=== PATIENT | male | born 1990 | race Caucasian/White ===

== ENCOUNTER 2018-08-24 12:05 | Emergency (ER) | payer SELFPAY ==
[2018-08-24] MEDS ORDERED: Ketorolac 60 MG/2 ML SDV IM ONE (12:21)
[2018-08-24] MEDS ORDERED: traMADol 50 MG Tab PO ONE (13:59)
--- NOTE | 2018-08-24 14:05 | EDM.PDOC ---
ED HPI GENERAL MEDICAL PROBLEM - General Chief Complaint: Lower Extremity Injury/Pain Stated Complaint: LEFT HIP PAIN Time Seen by Provider: 08/24/18 12:07 Source of Information: Reports: Patient History Limitations: Reports: No Limitations - History of Present Illness INITIAL COMMENTS - FREE TEXT/NARRATIVE: History of present illness: []Patient fell off his porch prior to arrival landing on his left hip. Patient had hip surgery in April in [place] and has had pain in that hip ever since. After the fall he states he can't bear weight and it feels unstable. He denies any numbness or tingling or any other injuries on the fall. Review of systems: As per history of present illness and below otherwise all systems reviewed and negative. Past medical history: As per history of present illness and as reviewed below otherwise noncontributory. Surgical history: As per history of present illness and as reviewed below otherwise noncontributory. Social history: No reported history of drug or alcohol abuse. Family history: As per history of present illness and as reviewed below otherwise noncontributory. Physical exam: General: Well developed, well nourished in NAD HEENT: Atraumatic, normocephalic, pupils reactive, negative for conjunctival pallor or scleral icterus, mucous membranes moist, throat clear, neck supple, nontender, trachea midline. Lungs: Clear to auscultation, breath sounds equal bilaterally, chest nontender. Heart: S1S2, regular, negative for clicks, rubs, or JVD. Abdomen: NABS, Soft, nondistended, nontender. Negative for masses or hepatosplenomegaly. Negative for costovertebral tenderness. Pelvis: Stable nontender. Genitourinary: Deferred. Rectal: Deferred. Extremities: Left hip with surgical wound laterally healing well, there is no shortening or rotation of his left extremity positive free movement on flexion extension and internal/external rotation, negative for cords or calf pain. Neurovascular unremarkable. Neuro: Awake, alert, oriented. Cranial nerves II through XII unremarkable. Cerebellum unremarkable. Motor and sensory unremarkable throughout. Exam nonfocal. Skin:warm and dry Diagnostics: X-ray left hip no acute fracture Therapeutics: Toradol, tramadol ED Course: Unremarkable Impression: Left hip contusion Prescriptions: Tramadol Plan: Follow-up with PMD, symptoms worsen or change. Definitive disposition and diagnosis as appropriate pending reevaluation and review of above. left hip Pain Score (Numeric/FACES): 6 - Related Data Allergies Allergy/AdvReac Type Severity Reaction Status Date / Time No Known Allergies Allergy Verified 08/24/18 12:12 Home Meds: Home Meds traMADol HCl [Tramadol HCl] 50 mg PO Q6H PRN #16 tablet 08/24/18 [Rx] Past Medical History HEENT History: Reports: None Cardiovascular History: Reports: None Respiratory History: Reports: None Gastrointestinal History: Reports: None Genitourinary History: Reports: None Musculoskeletal History: Reports: None Neurological History: Reports: None Psychiatric History: Reports: None Endocrine/Metabolic History: Reports: None Hematologic History: Reports: None Immunologic History: Reports: None Oncologic (Cancer) History: Reports: None Dermatologic History: Reports: None - Past Surgical History Head Surgeries/Procedures: Reports: None HEENT Surgical History: Reports: None Cardiovascular Surgical History: Reports: None Respiratory Surgical History: Reports: None GI Surgical History: Reports: None Male Surgical History: Reports: None Endocrine Surgical History: Reports: None Neurological Surgical History: Reports: None Musculoskeletal Surgical History: Reports: Other (See Below) Other Musculoskeletal Surgeries/Procedures:: shattered left hip with pins and scerws placed, bilateral ankle surgery Oncologic Surgical History: Reports: None Dermatological Surgical History: Reports: None Social & Family History - Family History Family Medical History: Noncontributory - Tobacco Use Smoking Status *Q: Current Every Day Smoker Years of Tobacco use: 6 Packs/Tins Daily: 1 - Caffeine Use Caffeine Use: Reports: Coffee, Energy Drinks, Soda, Tea - Recreational Drug Use Recreational Drug Use: No Review of Systems - Review of Systems Review Of Systems: ROS reveals no pertinent complaints other than HPI. ED EXAM, GENERAL - Physical Exam Exam: See Below (See history of present illness) Course - Vital Signs Last Recorded V/S: Last Vital Signs Temp 97.3 F 08/24/18 12:13 Pulse 79 08/24/18 14:07 Resp 18 08/24/18 14:07 BP 130/73 08/24/18 14:07 Pulse Ox 98 08/24/18 14:07 - Orders/Labs/Meds Meds: Medications Discontinued Medications Generic Name Dose Route Start Last Admin Trade Name Freq PRN Reason Stop Dose Admin Ketorolac Tromethamine 60 mg 08/24/18 12:21 08/24/18 12:42 Toradol IM 08/24/18 12:22 60 mg ONETIME ONE Administration Tramadol HCl 50 mg 08/24/18 13:59 08/24/18 14:07 Ultram PO 08/24/18 14:00 50 mg ONETIME ONE Administration Departure - Departure Time of Disposition: 14:23 Disposition: Home, Self-Care 01 Condition: Good Clinical Impression: Chronic left hip pain - Discharge Information *PRESCRIPTION DRUG MONITORING PROGRAM REVIEWED*: No Prescriptions: traMADol HCl [Tramadol HCl] 50 mg PO Q6H PRN #16 tablet PRN Reason: Pain Referrals: PCP,None [Primary Care Provider] - Forms: ED Department Discharge Additional Instructions: The following information is given to patients seen in the emergency department who are being discharged to home. This information is to outline your options for follow-up care. We provide all patients seen in our emergency department with a follow-up referral. The need for follow-up, as well as the timing and circumstances, are variable depending upon the specifics of your emergency department visit. If you don't have a primary care physician on staff, we will provide you with a referral. We always advise you to contact your personal physician following an emergency department visit to inform them of the circumstance of the visit and for follow-up with them and/or the need for any referrals to a consulting specialist. The emergency department will also refer you to a specialist when appropriate. This referral assures that you have the opportunity for follow-up care with a specialist. All of these measure are taken in an effort to provide you with optimal care, which includes your follow-up. Under all circumstances we always encourage you to contact your private physician who remains a resource for coordinating your care. When calling for follow-up care, please make the office aware that this follow-up is from your recent emergency room visit. If for any reason you are refused follow-up, please contact the [facility] Emergency Department at and asked to speak to the emergency department charge nurse. Take meds as directed, ice to hip, follow-up PMD. return to ER if symptoms worsen or change. [facility] [address] [place] [id number]
--- NOTE | 2018-08-24 14:17 | CR ---
EXAMINATION: Pelvis and left hip HISTORY: Fall COMPARISON: None TECHNIQUE: AP pelvis and 2 views of the left hip FINDINGS: There is screw and plate hardware fixating the left acetabulum. There is no definite fracture or acute osseous and metallic noted. Bone mineralization is preserved. Advanced joint space narrowing, subchondral cystic changes, and degenerative changes noted within the left hip, likely posttraumatic. The SI joints are symmetric. IMPRESSION: 1. No definite acute osseous and metallic. 2. Advanced, likely posttraumatic, degenerative changes and joint space narrowing noted within the left hip.
== END 2018-08-24 14:33 | disposition home or self-care (01) ==
LOC: MW.ED 12:05
DX: S70.02XA Contusion of left hip, initial encounter (principal); G89.29 Other chronic pain; F17.210 Nicotine dependence, cigarettes, uncomplicated; W17.89XA Other fall from one level to another, initial encounter
CPT/HCPCS: 73502; 96372; 99283; A9270; J1885